=== PATIENT | female | born 1965 | race Caucasian/White ===

== ENCOUNTER 2020-07-10 15:18 | Inpatient (IN) | payer MEDICAID ==
[~2020-07-10] VITALS: Ht 167.6 cm; Wt 81.4 kg
[~2020-07-10 15:18] MED LIST: CALCIUM CHLORIDE 1GM/10ML SYR IV ONE; EPINEPHRINE 0.1MG/ML (1:10,000) 10ML SYR ONE; SODIUM BICARBONATE 8.4% 1 MEQ/ML 50ML SYR IV ONE
[2020-07-10] MEDS ORDERED: heparin (15:29)
[2020-07-10] MEDS ORDERED: ATOR-2 PO (15:29)
[2020-07-10] MEDS ORDERED: NAPR220C61 PO (15:29)
[2020-07-10] MEDS ORDERED: CLOP75TA33 PO (15:29)
[2020-07-10] MEDS ORDERED: CLON-457 PO (15:29)
[2020-07-10] MEDS ORDERED: HYDR-4135 PO (15:29)
[2020-07-10] MEDS ORDERED: PANT40TA51 PO (15:29)
[2020-07-10] MEDS ORDERED: ASPI-1497 PO (15:29)
[2020-07-10] MEDS ORDERED: TOPUD PO (15:29)
[2020-07-10] MEDS ORDERED: METO25TA6 PO (15:29)
[2020-07-10] MEDS ORDERED: CINA60 PO (15:29)
[2020-07-10] MEDS ORDERED: CALC0.5C10 PO (15:29)
[2020-07-10] MEDS ORDERED: ONDANSETRON HCL 4MG/2ML INJ IV STA (16:22)
[2020-07-10] MEDS ORDERED: SODIUM CHLORIDE 0.9% 1,000 ML IV ONE (16:30)
[2020-07-10 17:03] LABS: BASOPHILS % 1.7 % (0.0-2.0); EOSINOPHILS % 0.5 % (0.0-5.0); LYMPHOCYTES % 19.6 % (20.0-50.0); MEAN CORPUSCULAR VOLUME 109.9 fL (81.0-99.0); MEAN PLATELET VOLUME 10.7 fl (7.4-10.4); MONOCYTES % 9.1 % (2.0-8.0); NEUTROPHILS % 69.1 % (40.0-76.0); PLATELET 137 x1000/uL (130-400); RED BLOOD CELL COUNT 3.55 mill/uL (4.2-5.4); RED CELL DISTRIBUTION WIDTH 19.1 % (11.6-14.6)
[2020-07-10 17:07] LABS: CHLORIDE 95 mEq/L (98-107)
[2020-07-10] MEDS ORDERED: CALCIUM GLUCONATE 1GM PREMIX 50 ML IV ONE (17:15)
[2020-07-10] MEDS ORDERED: CEFTRIAXONE 1 G PREMIX 50 ML IV NR (17:30)
[2020-07-10] MEDS: AZITHROMYCIN 500 MG in DEXT 5% WATER 250 ML IV SCH ×2 (18:42→19:30)
[2020-07-10] MEDS ORDERED: EPINEPHRINE 5 MG in SODIUM CHLORIDE 0.9% 245 ML IV PRN ×2 (19:45→20:30)
[2020-07-11] MEDS ORDERED: TRAZODONE HCL 50MG TABLET PO PRN (01:30)
[2020-07-11] MEDS ORDERED: ONDANSETRON HCL 4MG/2ML INJ IV PRN (01:30)
[2020-07-11] MEDS ORDERED: ACETAMINOPHEN 325MG TABLET PO PRN (01:30)
[2020-07-11] MEDS: HEPARIN 5000 UNITS/ML VIAL SUBCUT SCH ×2 (09:40→21:07)
[2020-07-11] MEDS: SODIUM CHLORIDE 0.9% 1,000 ML IV SCH (09:40)
[2020-07-11 09:59] LABS: BASOPHILS % 0.9 % (0.0-2.0); EOSINOPHILS % 0.3 % (0.0-5.0); HEMATOCRIT. 36.5 % (36.0-48.0); HEMOGLOBIN. 11.6 g/dL (12.0-16.0); MEAN CORPUSCULAR HEMOGLOBIN 34.8 pg (28.0-32.0); MEAN CORPUSCULAR VOLUME 109.2 fL (81.0-99.0); MEAN PLATELET VOLUME 10.3 fl (7.4-10.4); MONOCYTES % 10.1 % (2.0-8.0); NEUTROPHILS % 58.7 % (40.0-76.0); PLATELET 119 x1000/uL (130-400); RED BLOOD CELL COUNT 3.34 mill/uL (4.2-5.4); RED CELL DISTRIBUTION WIDTH 18.7 % (11.6-14.6)
[2020-07-11 10:16] LABS: T4 FREE 1.5 ng/dL (0.76-1.46)
[2020-07-11 12:13] VITALS: BP 158/69
[2020-07-11] MEDS ORDERED: SODIUM BICARBONATE 8.4% 1 MEQ/ML 50ML SYR IV SCH (14:00)
[2020-07-11] MEDS ORDERED: DEXTROSE 50% WATER 50ML SYRINGE IV SCH (15:00)
[2020-07-11] MEDS ORDERED: INSULIN REGULAR (HUMULIN R) UD 100 UNITS/ML SYR IV SCH (15:00)
[2020-07-11 16:00] VITALS: BP 134/85
[2020-07-11 20:00] VITALS: BP 133/81
[2020-07-12] VITALS: BP 125/79
[2020-07-12] MEDS: SODIUM CHLORIDE 0.9% 1,000 ML IV SCH (00:08)
[2020-07-12 04:00] VITALS: BP 139/91
[2020-07-12 07:56] LABS: BASOPHILS % 0.7 % (0.0-2.0); EOSINOPHILS % 0.2 % (0.0-5.0); HEMATOCRIT. 35.9 % (36.0-48.0); HEMOGLOBIN. 11.4 g/dL (12.0-16.0); LYMPHOCYTES % 19.8 % (20.0-50.0); MEAN CORPUSCULAR HEMOGLOBIN 34.6 pg (28.0-32.0); MEAN CORPUSCULAR VOLUME 109.1 fL (81.0-99.0); MEAN PLATELET VOLUME 10.4 fl (7.4-10.4); MONOCYTES % 8.2 % (2.0-8.0); NEUTROPHILS % 71.1 % (40.0-76.0); PLATELET 128 x1000/uL (130-400); RED BLOOD CELL COUNT 3.29 mill/uL (4.2-5.4); RED CELL DISTRIBUTION WIDTH 18.6 % (11.6-14.6)
[2020-07-12 08:12] LABS: CHLORIDE 98 mEq/L (98-107)
[2020-07-12] MEDS: HEPARIN 5000 UNITS/ML VIAL SUBCUT SCH ×2 (08:27→22:42)
[2020-07-12 08:28] LABS: T4 FREE 1.44 ng/dL (0.76-1.46)
[2020-07-12] MEDS ORDERED: SODIUM POLYSTYRENE SULFONATE 15 G/60 ML BOT PO SCH (10:37)
[2020-07-12] MEDS ORDERED: INSULIN REGULAR (HUMULIN R) UD 100 UNITS/ML SYR IV STA (10:37)
[2020-07-12] MEDS ORDERED: SODIUM BICARBONATE 8.4% 1 MEQ/ML 50ML SYR IV STA (10:37)
[2020-07-12] MEDS ORDERED: DEXTROSE 50% WATER 50ML SYRINGE IV STA (10:37)
[2020-07-12] MEDS ORDERED: INSULIN REGULAR (HUMULIN R) UD 100 UNITS/ML SYR IV SCH (11:00)
[2020-07-12 12:00] VITALS: BP 126/86
[2020-07-12] MEDS ORDERED: REGADENOSON 0.4 MG/5 ML IV NR (14:45)
[2020-07-12 16:00] VITALS: BP 104/70
[2020-07-12 20:00] VITALS: BP_SYST 103; BP_SYST 104; BP_DIAS 26; BP_DIAS 62
[2020-07-12] MEDS: CARVEDILOL 6.25 MG TABLET PO SCH (21:00)
[2020-07-13] VITALS: BP 110/70
[2020-07-13] MEDS: SODIUM CHLORIDE 0.9% 1,000 ML IV SCH (01:52)
[2020-07-13 06:33] VITALS: BP 150/82
[2020-07-13 08:00] VITALS: BP 131/72
[2020-07-13] MEDS: HEPARIN 5000 UNITS/ML VIAL SUBCUT SCH (08:41)
[2020-07-13] MEDS: CARVEDILOL 6.25 MG TABLET PO SCH (08:46)
[2020-07-13] MEDS ORDERED: REGADENOSON 0.4 MG/5 ML IV ONE (10:44)
[2020-07-13 10:47] LABS: BASOPHILS % 0.8 % (0.0-2.0); EOSINOPHILS % 0.4 % (0.0-5.0); HEMATOCRIT. 36.1 % (36.0-48.0); HEMOGLOBIN. 11.6 g/dL (12.0-16.0); LYMPHOCYTES % 18.8 % (20.0-50.0); MEAN CORPUSCULAR HEMOGLOBIN 34.7 pg (28.0-32.0); MEAN CORPUSCULAR VOLUME 108.1 fL (81.0-99.0); MEAN PLATELET VOLUME 10.1 fl (7.4-10.4); MONOCYTES % 7.6 % (2.0-8.0); NEUTROPHILS % 72.4 % (40.0-76.0); PLATELET 125 x1000/uL (130-400); RED BLOOD CELL COUNT 3.33 mill/uL (4.2-5.4); RED CELL DISTRIBUTION WIDTH 18.5 % (11.6-14.6)
[2020-07-13 11:01] LABS: CHLORIDE 100 mEq/L (98-107)
== END 2020-07-13 16:25 | disposition home or self-care (01) | DRG 48 ==
LOC: ER 15:18 → 7WST 21:04 → EDBEDREQTM 21:09 → EDBEDREQ 21:09 → EDBEDREQSVC 07-11 09:29 → ENRESERV 07-11 11:14 → 5WST 07-12 09:52
PROVIDERS: ADMIT Internal Medicine; ATTEND Internal Medicine
PROC: 5A1D70Z Performance of Urinary Filtration, Intermittent, Less than 6 Hours Per Day (ICD-10-PCS; principal; 2020-07-11)
DX: G90.8 Other disorders of autonomic nervous system (principal); E87.8 Other disorders of electrolyte and fluid balance, not elsewhere classified; R00.1 Bradycardia, unspecified; I95.9 Hypotension, unspecified; D63.1 Anemia in chronic kidney disease; E03.9 Hypothyroidism, unspecified; E11.22 Type 2 diabetes mellitus with diabetic chronic kidney disease; E78.5 Hyperlipidemia, unspecified; E87.1 Hypo-osmolality and hyponatremia; E87.5 Hyperkalemia; I25.10 Atherosclerotic heart disease of native coronary artery without angina pectoris; I25.5 Ischemic cardiomyopathy; N18.6 End stage renal disease; Z20.822 Contact with and (suspected) exposure to COVID-19; E44.0 Moderate protein-calorie malnutrition; E11.51 Type 2 diabetes mellitus with diabetic peripheral angiopathy without gangrene; I08.0 Rheumatic disorders of both mitral and aortic valves; I13.2 Hypertensive heart and chronic kidney disease with heart failure and with stage 5 chronic kidney disease, or end stage renal disease; I31.3 Pericardial effusion (noninflammatory); I50.22 Chronic systolic (congestive) heart failure; L85.3 Xerosis cutis; Z89.421 Acquired absence of other right toe(s); Z68.29 Body mass index [BMI] 29.0-29.9, adult; Z86.73 Personal history of transient ischemic attack (TIA), and cerebral infarction without residual deficits; I25.2 Old myocardial infarction; Z99.2 Dependence on renal dialysis; J84.9 Interstitial pulmonary disease, unspecified
CPT/HCPCS: 36415; 71045; 78452; 80048; 80053; 80305; 82962; 83605; 83615; 83735; 84439; 84443; 84481; 84484; 85025; 85384; 87426; 93005; 93017; 93306; 93880; 93923; 99291; A9500; J0456; J0610; J0696; J1644; J1815; J2405; J2785; J3490; J7030; J7050; J7060; U0003

== ENCOUNTER 2020-08-22 16:50 | Inpatient (IN) | payer MEDICAID ==
[~2020-08-22] VITALS: Ht 154.9 cm; Wt 86.7 kg
[~2020-08-22 16:50] MED LIST changes: +ASPI-1497 PO; +ATOR-2 PO; +CALC0.5C10 PO; -CALCIUM CHLORIDE 1GM/10ML SYR IV ONE; +CINA60 PO; +CLON-457 PO; +CLOP75TA33 PO; -EPINEPHRINE 0.1MG/ML (1:10,000) 10ML SYR ONE; +HYDR-4135 PO; +PANT40TA51 PO; -SODIUM BICARBONATE 8.4% 1 MEQ/ML 50ML SYR IV ONE; +TOPUD PO
[2020-08-22] MEDS ORDERED: MORPHINE SULFATE 2 MG/ML CPJ (NOT FOR IM USE) IV ONE (17:30)
[2020-08-22 17:40] LABS: BASOPHILS % 3.1 % (0.0-2.0); EOSINOPHILS % 1.2 % (0.0-5.0); HEMATOCRIT. 36.8 % (36.0-48.0); HEMOGLOBIN. 12.5 g/dL (12.0-16.0); MEAN CORPUSCULAR HEMOGLOBIN 34.8 pg (28.0-32.0); MEAN CORPUSCULAR VOLUME 102.3 fL (81.0-99.0); MEAN PLATELET VOLUME 9.6 fl (7.4-10.4); MONOCYTES % 7.2 % (2.0-8.0); NEUTROPHILS % 72.5 % (40.0-76.0); PLATELET 185 x1000/uL (130-400); RED BLOOD CELL COUNT 3.59 mill/uL (4.2-5.4); RED CELL DISTRIBUTION WIDTH 18.5 % (11.6-14.6)
[2020-08-22 17:47] LABS: CHLORIDE 94 mEq/L (98-107)
[2020-08-22 17:49] LABS: INR 1.3; PROTHROMBIN TIME 13.3 sec (9.6-11.0)
[2020-08-23] MEDS ORDERED: DEXTROSE 50% WATER 50ML SYRINGE IV PRN (01:15)
[2020-08-23] MEDS ORDERED: HYDROCODONE/ACETAMINOPHEN 10/325MG TABLET PO PRN (01:15)
[2020-08-23] MEDS ORDERED: PIPERACILLIN/TAZOBACTAM 3.375 G in DEXT 5% WATER 100 ML IV SCH (01:30)
[2020-08-23 01:47] VITALS: BP 129/78
[2020-08-23] MEDS ORDERED: VANCOMYCIN 1 G PREMIX 200 ML IV SCH (02:00)
[2020-08-23 04:00] VITALS: BP 132/76
[2020-08-23] MEDS: DIPHENHYDRAMINE 50MG CAPSULE PO PRN ×2 (05:07→13:21)
[2020-08-23] MEDS: INSULIN LISPRO 100 UNITS/ML SUBCUT SCH ×4 (05:18→21:00)
[2020-08-23] MEDS: BLOOD SUGAR DIAGNOSTIC STRIP TEST SCH ×4 (05:18→21:38)
[2020-08-23] MEDS: PANTOPRAZOLE 40MG DR TABLET PO SCH (06:04)
[2020-08-23 07:01] LABS: BASOPHILS % 1.2 % (0.0-2.0); EOSINOPHILS % 2.4 % (0.0-5.0); HEMATOCRIT. 37.6 % (36.0-48.0); HEMOGLOBIN. 12.3 g/dL (12.0-16.0); LYMPHOCYTES % 33.3 % (20.0-50.0); MEAN CORPUSCULAR VOLUME 104.3 fL (81.0-99.0); MEAN PLATELET VOLUME 9.4 fl (7.4-10.4); MONOCYTES % 7.5 % (2.0-8.0); NEUTROPHILS % 55.6 % (40.0-76.0); PLATELET 166 x1000/uL (130-400); RED BLOOD CELL COUNT 3.61 mill/uL (4.2-5.4)
[2020-08-23 07:07] LABS: PHOSPHORUS 4.6 mg/dL (2.5-4.9)
[2020-08-23 08:00] VITALS: BP 128/83
[2020-08-23] MEDS ORDERED: PIPERACILLIN/TAZOBACTAM 3.375 G/VIAL IV SCH (09:00)
[2020-08-23] MEDS: FOLIC ACID/VITAMIN B COMP W-C TABLET PO SCH (09:28)
[2020-08-23] MEDS: SEVELAMER CARBONATE 800 MG TABLET PO SCH ×3 (09:28→17:41)
[2020-08-23] MEDS ORDERED: VANCOMYCIN 500 MG PREMIX 100 ML IV SCH (11:00)
[2020-08-23] MEDS: PIPERACILLIN/TAZOBACTAM 2.25 G in DEXTROSE 5% WATER 50 ML IV SCH ×2 (11:20→21:41)
[2020-08-23 12:00] VITALS: BP 128/74
[2020-08-23] MEDS ORDERED: IOHEXOL-350 100 ML BOTTLE ONE (13:40)
[2020-08-23 16:00] VITALS: BP 126/71
[2020-08-23] MEDS ORDERED: ENOXAPARIN 30MG/0.3ML SYR SUBCUT NR (17:00)
[2020-08-23] MEDS ORDERED: ONDANSETRON HCL 4MG/2ML INJ IV PRN (17:30)
[2020-08-23 20:00] VITALS: BP 131/71
[2020-08-24] VITALS (10 sets, daily range): BP systolic 122–147; BP diastolic 77–91
[2020-08-24] MEDS: DIPHENHYDRAMINE 50MG CAPSULE PO PRN ×3 (01:57→17:05)
[2020-08-24] MEDS: PIPERACILLIN/TAZOBACTAM 2.25 G in DEXTROSE 5% WATER 50 ML IV SCH ×3 (03:05→23:30)
[2020-08-24] MEDS: BLOOD SUGAR DIAGNOSTIC STRIP TEST SCH ×4 (05:22→21:00)
[2020-08-24] MEDS: PANTOPRAZOLE 40MG DR TABLET PO SCH (05:22)
[2020-08-24] MEDS: INSULIN LISPRO 100 UNITS/ML SUBCUT SCH ×4 (05:22→21:00)
[2020-08-24 07:37] LABS: EOSINOPHILS % 1.7 % (0.0-5.0); HEMATOCRIT. 39.2 % (36.0-48.0); HEMOGLOBIN. 12.9 g/dL (12.0-16.0); LYMPHOCYTES % 22.2 % (20.0-50.0); MEAN CORPUSCULAR HEMOGLOBIN 34.5 pg (28.0-32.0); MEAN PLATELET VOLUME 10.2 fl (7.4-10.4); MONOCYTES % 7.7 % (2.0-8.0); NEUTROPHILS % 65.4 % (40.0-76.0); PLATELET 172 x1000/uL (130-400); RED BLOOD CELL COUNT 3.74 mill/uL (4.2-5.4); RED CELL DISTRIBUTION WIDTH 18.6 % (11.6-14.6)
[2020-08-24] MEDS ORDERED: HEPARIN SODIUM 1,000 UNIT/1ML VIAL IV ONE (07:43)
[2020-08-24] MEDS: FOLIC ACID/VITAMIN B COMP W-C TABLET PO SCH (09:22)
[2020-08-24] MEDS: SEVELAMER CARBONATE 800 MG TABLET PO SCH ×4 (09:22→17:05)
[2020-08-24] MEDS ORDERED: IODIXANOL 320MG/ML 100 ML BOTTLE IV ONE ×2 (12:25→14:03)
[2020-08-24] MEDS ORDERED: LIDOCAINE HCL 1% 20ML VIAL (Pyxis) INJ ONE (12:26)
[2020-08-24] MEDS ORDERED: IOHEXOL-300 100 ML BOTTLE ONE (12:26)
[2020-08-24] MEDS ORDERED: ASPIRIN/SOD BICARB/CITRIC ACID 324MG TAB EFF ONE (12:48)
[2020-08-24] MEDS ORDERED: FENTANYL CITRATE/PF 50MCG/ML 2ML VIAL ONE (12:48)
[2020-08-24] MEDS ORDERED: MIDAZOLAM HCL 2 MG/2 ML VIAL ONE (12:49)
[2020-08-24] MEDS ORDERED: CLOPIDOGREL 75MG TABLET ONE (14:24)
[2020-08-24] MEDS ORDERED: ATROPINE SULFATE 1MG/10ML SYR IV PRN (14:45)
[2020-08-24] MEDS ORDERED: MORPHINE SULFATE 2 MG/ML CPJ (NOT FOR IM USE) IV PRN (14:45)
[2020-08-24] MEDS ORDERED: ACETAMINOPHEN 325MG TABLET PO PRN (14:45)
[2020-08-24] MEDS ORDERED: CLOPIDOGREL 75MG TABLET PO ONE (14:45)
[2020-08-24] MEDS ORDERED: ONDANSETRON HCL 4MG/2ML INJ IV PRN (14:45)
[2020-08-24] MEDS ORDERED: VANCOMYCIN 750 MG PREMIX 150 ML IV NR (21:00)
[2020-08-25] VITALS: BP 140/96
[2020-08-25] MEDS: DIPHENHYDRAMINE 50MG CAPSULE PO PRN (00:18)
[2020-08-25 04:00] VITALS: BP 139/87
[2020-08-25] MEDS: PIPERACILLIN/TAZOBACTAM 2.25 G in DEXTROSE 5% WATER 50 ML IV SCH ×2 (04:53→12:30)
[2020-08-25] MEDS: BLOOD SUGAR DIAGNOSTIC STRIP TEST SCH ×2 (06:09→12:23)
[2020-08-25] MEDS ORDERED: FAMOTIDINE 20MG TABLET PO SCH (06:50)
[2020-08-25 07:16] LABS: BASOPHILS % 1.9 % (0.0-2.0); EOSINOPHILS % 0.8 % (0.0-5.0); HEMATOCRIT. 37.4 % (36.0-48.0); HEMOGLOBIN. 12.2 g/dL (12.0-16.0); LYMPHOCYTES % 17.5 % (20.0-50.0); MEAN CORPUSCULAR HEMOGLOBIN 33.8 pg (28.0-32.0); MEAN CORPUSCULAR VOLUME 103.4 fL (81.0-99.0); MEAN PLATELET VOLUME 9.8 fl (7.4-10.4); MONOCYTES % 6.8 % (2.0-8.0); PLATELET 181 x1000/uL (130-400); RED BLOOD CELL COUNT 3.61 mill/uL (4.2-5.4); RED CELL DISTRIBUTION WIDTH 18.2 % (11.6-14.6)
[2020-08-25] MEDS: INSULIN LISPRO 100 UNITS/ML SUBCUT SCH ×2 (07:20→12:31)
[2020-08-25 08:00] VITALS: BP 126/85
[2020-08-25] MEDS: SEVELAMER CARBONATE 800 MG TABLET PO SCH ×2 (08:50→12:31)
[2020-08-25] MEDS: FOLIC ACID/VITAMIN B COMP W-C TABLET PO SCH (08:51)
[2020-08-25] MEDS ORDERED: ASPIRIN 81MG TABLET PO SCH (09:00)
[2020-08-25] MEDS ORDERED: CLOPIDOGREL 75MG TABLET PO SCH (09:00)
[2020-08-25 10:52] VITALS: BP 126/83
[2020-08-25] MEDS ORDERED: CLOP75TA15 PO (11:23)
[2020-08-25] MEDS ORDERED: ASPI-1160 PO (11:23)
[2020-08-25 12:00] VITALS: BP 112/81
== END 2020-08-25 15:37 | disposition home or self-care (01) | DRG 181 ==
LOC: ER 16:50 → 8WST 20:59 → ENRESERV 23:09 → 3WST 08-24 15:18
PROVIDERS: ADMIT Internal Medicine; ATTEND Internal Medicine
PROC: 047 Lower Arteries, Dilation (ICD-10-PCS; principal; 2020-08-24)
PROC: 047S3ZZ Dilation of Left Posterior Tibial Artery, Percutaneous Approach (ICD-10-PCS; 2020-08-24)
PROC: 047U3ZZ Dilation of Left Peroneal Artery, Percutaneous Approach (ICD-10-PCS; 2020-08-24)
PROC: B41G1ZZ Fluoroscopy of Left Lower Extremity Arteries using Low Osmolar Contrast (ICD-10-PCS; 2020-08-24)
PROC: 5A1D70Z Performance of Urinary Filtration, Intermittent, Less than 6 Hours Per Day (ICD-10-PCS; 2020-08-24)
DX: E11.52 Type 2 diabetes mellitus with diabetic peripheral angiopathy with gangrene (principal); I13.2 Hypertensive heart and chronic kidney disease with heart failure and with stage 5 chronic kidney disease, or end stage renal disease; I96 Gangrene, not elsewhere classified; E11.22 Type 2 diabetes mellitus with diabetic chronic kidney disease; E11.42 Type 2 diabetes mellitus with diabetic polyneuropathy; E44.1 Mild protein-calorie malnutrition; I42.9 Cardiomyopathy, unspecified; I50.22 Chronic systolic (congestive) heart failure; E11.621 Type 2 diabetes mellitus with foot ulcer; N18.6 End stage renal disease; E11.319 Type 2 diabetes mellitus with unspecified diabetic retinopathy without macular edema; E87.1 Hypo-osmolality and hyponatremia; E87.6 Hypokalemia; E87.8 Other disorders of electrolyte and fluid balance, not elsewhere classified; D64.9 Anemia, unspecified; H54.8 Legal blindness, as defined in USA; L08.9 Local infection of the skin and subcutaneous tissue, unspecified; Z20.822 Contact with and (suspected) exposure to COVID-19; I25.10 Atherosclerotic heart disease of native coronary artery without angina pectoris; I25.2 Old myocardial infarction; Z86.73 Personal history of transient ischemic attack (TIA), and cerebral infarction without residual deficits; Z99.2 Dependence on renal dialysis; Z79.82 Long term (current) use of aspirin; Z79.1 Long term (current) use of non-steroidal anti-inflammatories (NSAID); Z79.899 Other long term (current) drug therapy; Z68.36 Body mass index [BMI] 36.0-36.9, adult; Z79.02 Long term (current) use of antithrombotics/antiplatelets; Z79.4 Long term (current) use of insulin
CPT/HCPCS: 36415; 37228; 37230; 37232; 71045; 72191; 73630; 73706; 75710; 80048; 80053; 80061; 80202; 82962; 83036; 83605; 84100; 84145; 84484; 85025; 85651; 86140; 87426; 93005; 99285; C1725; C1760; C1769; C1874; C1893; C1894; J1644; J1650; J1815; J2250; J2270; J2405; J2543; J3010; J3370; J3490; J7060; Q0163; Q9967